=== PATIENT | female | born 1990 | race Caucasian/White ===

== ENCOUNTER → 2021-03-02 07:33 | Outpatient (CLI) | payer OTHER, SELFPAY ==
--- NOTE | 2021-03-02 07:42 | US_ITS ---
STUDY: ABDOMINAL ULTRASOUND - RIGHT UPPER QUADRANT REASON FOR VISIT: Female, 30 years old elevated liver function tests. TECHNIQUE: Ultrasound evaluation of the right upper quadrant was performed with real-time and static mcbride-scale imaging. TECHNICAL QUALITY: Adequate. COMPARISON: None. FINDINGS: Liver: The liver measures 14.1 cm. There is normal echogenicity of the liver. The bile ducts are within normal limits. There is hepatic color flow. The direction of portal flow is hepatopetal. There is no demonstrated mass lesion. Gallbladder: Normal distended gallbladder. The gallbladder wall measures 2.0 mm. There is a negative sonographic Hou''s sign. There is no pericholecystic fluid. There are no gallstones. Common Bile Duct (C.B.D.): The common bile duct measures 3.0 mm. Pancreas: Normal size of the head, body and tail of the pancreas. There is normal echogenicity of the pancreas. There is no demonstrated pancreatic mass or cyst. Right Kidney: Normal size of the right kidney. The right kidney measures 10.3 cm x 5.6 cm x 4.3 cm. Normal renal cortex. The right cortex measures 1.5 cm. There is no demonstrated renal mass or cyst. There is no right hydronephrosis. US/Liver IMPRESSION: Normal right upper quadrant ultrasound examination. Electronically Signed: Parth Pereira MD at 10:59 EST , Service support ,
--- NOTE | 2021-03-02 08:10 | RAD_ITS ---
STUDY: X-RAY - THORACIC SPINE REASON FOR EXAM: Female, 30 years old. BACK PAIN TECHNIQUE: 3 view(s) of the thoracic spine were obtained. COMPARISON: None. FINDINGS: There is straightening of the normal thoracic kyphosis. There is no substantial scoliosis. Normal thoracic vertebrae and endplates. Normal disc space heights. The soft tissue structures are unremarkable. RAD/Thoracic Spine 3 Views IMPRESSION: There is straightening of the normal thoracic kyphosis. Electronically Signed: Parth Pereira MD at 10:50 EST , Service support ,
--- NOTE | 2021-03-02 08:10 | RAD_ITS ---
STUDY: X-RAY - LUMBAR SPINE REASON FOR EXAM: Female, 30 years old. BACK PAIN TECHNIQUE: 5 view(s) of the lumbar spine were obtained. COMPARISON: None FINDINGS: Normal lumbar lordosis. There is no substantial scoliosis. There is a normal alignment of the vertebrae. Normal vertebral bodies and endplates. Normal disc space heights. The soft tissue structures are unremarkable. RAD/L/S Spine Min 4 Views IMPRESSION: Normal x-ray examination of the lumbar spine. Electronically Signed: Parth Pereira MD at 10:51 EST , Service support ,
[2021-03-02 09:00] LABS: Erythrocyte Sedimentation Rate 7 mm/hr (0-30)
[2021-03-02 09:20] LABS: AST(SGOT) 13 U/L (15-37); Alanine Aminotransfer ALT/SGPT 17 U/L (13-56); Albumin, Serum 3.9 g/dL (3.2-5.0); Alkaline Phosphatase 55 U/L (45-117); Anion Gap 4 (5-15); BUN 10 mg/dL (7-18); BUN/Creat Ratio 11.4 RATIO (10-20); CRP < 2.90 mg/L (0.0-3.0); Calcium,Total 9.3 mg/dL (8.5-10.1); Chloride 105 mmol/L (98-107); Creatinine, Serum 0.88 mg/dL (0.55-1.02); EST Glomerular Filtration Rate 82 mL/min (>60); Est Glom Filt Rate - Afr Amer 99 mL/min (>60); Globulin 3.9 g/dL (2.2-4.2); Glucose 86 mg/dL (74-106); Potassium 3.8 mmol/L (3.5-5.1); Protein, Total 7.8 g/dL (6.4-8.2); Sodium Level 138 mmol/L (136-145)
[2021-03-02 09:54] LABS: Hepatitis B Surface Antibody Reactive; Hepatitis B Surface Antigen Non-Reactive (Nonreactive); Hepatitis C Antibody Non-Reactive (Nonreactive)
== END ==
PROVIDERS: PCP Internal Medicine; Referring Provider Internal Medicine; Visit Provider Internal Medicine
DX: M54.50 Low back pain, unspecified (principal); M54.6 Pain in thoracic spine; R94.5 Abnormal results of liver function studies
CPT/HCPCS: 36415; 72072; 72110; 76705; 80053; 85652; 86140; 86706; 86803; 87340

== ENCOUNTER 2021-05-05 17:03 | Outpatient (CLI) | payer OTHER, SELFPAY ==
--- NOTE | 2021-05-05 17:14 | US_ITS ---
STUDY: THYROID ULTRASOUND REASON FOR EXAM: Female, 30 years old. Enlarged thyroid. TECHNIQUE: Ultrasound evaluation of the thyroid was performed with real-time and static mcbride-scale imaging. COMPARISON: None. FINDINGS: RIGHT LOBE: The right lobe of the thyroid gland measures 4.9 x 1.3 x 1 point cm. There is a heterogeneous echotexture. There are no demonstrated solid, cystic or complex lesions. Increased vascularity on DOPPLER imaging. LEFT LOBE: The left lobe of the thyroid gland measures 3.9 x 0.8 x 1.1 cm. There is a heterogeneous echotexture. There are no demonstrated solid, cystic or complex lesions. There is hypervascularity on DOPPLER imaging. ISTHMUS: The isthmus measures 0.2 cm. The regional lymph nodes are normal. US/Thyroid IMPRESSION: Heterogenous hypervascular thyroid without distinct mass. Electronically Signed: Lucio Jama DO at 22:57 EST Tel [phone], Service support ,
[2021-05-05 18:51] LABS: Free T3 2.6 pg/mL (2.18-3.98); T4 Free Direct 0.91 ng/dL (0.76-1.46); Thyroid Stim Hormone (TSH) 2.27 uIU/mL (0.358-3.74)
[2021-05-09 20:29] LABS: Anti-Thyroglobulin AB < 1.0 IU/mL (0.0-0.9)
== END 2021-05-05 23:59 | disposition short-term general hospital (02) ==
PROVIDERS: PCP Internal Medicine; Visit Provider Internal Medicine
DX: M54.50 Low back pain, unspecified (principal); E01.0 Iodine-deficiency related diffuse (endemic) goiter
CPT/HCPCS: 36415; 76536; 84432; 84439; 84443; 84481; 86376; 86800

== ENCOUNTER → 2022-06-27 | Outpatient (CLI) | payer OTHER, SELFPAY ==
[2022-06-30 00:07] LABS: Chlamydia By Nucleic Acid AMP Negative (Negative)
[2022-06-30 08:29] LABS: Gonococcus By Nucleic Acid AMP Negative (Negative)
== END | disposition home or self-care (01) ==
LOC: LABSPEC 17:48
PROVIDERS: PCP Internal Medicine; Visit Provider Obstetrics & Gynecology
DX: Z34.90 Encounter for supervision of normal pregnancy, unspecified, unspecified trimester (principal)
CPT/HCPCS: 87491; 87591

== ENCOUNTER → 2022-06-28 | Outpatient (CLI) | payer OTHER, SELFPAY ==
[2022-06-28 17:12] LABS: Absolute Lymphocyte Count 1.91 X10^3/uL (0.83-4.51); Absolute Neutrophil Count 5.7 X10^3/uL (2.0-7.7); Basophil# 0.03 X10^3/uL; Basophil% 0.3 % (0-1); Eosinophil# 0.11 X10^3/uL; Eosinophils% 1.3 % (0-5); Hematocrit 35.3 % (37-47); Hemoglobin 11.8 g/dL (12.0-15.0); Lymphocyte # 1.91 X10^3/ul (0.83-4.51); Mean Corp Hgb Conc 33.4 g/dL (32-36); Mean Corpuscular Hgb 30.7 pg (27.0-32.0); Mean Corpuscular Volume 91.9 fL (81-99); Mean Platelet Vol. 9.6 fl (6.2-12.0); Monocyte# 0.89 X10^3/uL; Monocyte% 10.2 % (0-10); NRBC Flagged by Analyzer 0 % (0-5); Neutrophil # 5.74 X10^3/uL (2.7-7.7); Platelet Count 248 K/mm3 (150-450); RBC Distribution Width CV 13.1 % (11.6-14.6); RBC Distribution Width SD 43.8 fl (35.1-43.9); Red Blood Count 3.84 M/mm3 (4.2-5.4); White Blood Count 8.7 K/mm3 (4.4-11.0)
[2022-06-28 18:27] LABS: HIV - WCH Non-Reactive (Nonreactive); Hepatitis B Surface Antigen Non-Reactive (Nonreactive); Hepatitis C Antibody Non-Reactive (Nonreactive); Rubella IgG Reactive (Nonreactive); Syphilis Antibodies Non-reactive
== END | disposition home or self-care (01) ==
LOC: LAB 16:43
PROVIDERS: PCP Internal Medicine; Referring Provider Obstetrics & Gynecology; Visit Provider Obstetrics & Gynecology
DX: Z34.90 Encounter for supervision of normal pregnancy, unspecified, unspecified trimester (principal)
CPT/HCPCS: 36415; 85025; 86703; 86762; 86780; 86803; 86850; 86900; 86901; 87086; 87340

== ENCOUNTER → 2022-10-20 | Outpatient (CLI) | payer OTHER, SELFPAY | END | disposition home or self-care (01) | LOC: LAB 16:47 | PROVIDERS: PCP Internal Medicine; Referring Provider Obstetrics & Gynecology; Visit Provider Obstetrics & Gynecology | DX: O26.899 Other specified pregnancy related conditions, unspecified trimester (principal); Z67.91 Unspecified blood type, Rh negative; Z3A.00 Weeks of gestation of pregnancy not specified | CPT/HCPCS: 36415; 86850; 86900; 86901 ==

== ENCOUNTER → 2022-10-25 | Outpatient (CLI) | payer OTHER, SELFPAY | END | disposition home or self-care (01) | PROVIDERS: PCP Internal Medicine | DX: Z34.90 Encounter for supervision of normal pregnancy, unspecified, unspecified trimester (principal); Z3A.00 Weeks of gestation of pregnancy not specified | CPT/HCPCS: 36415 ==

== ENCOUNTER → 2022-11-02 | Outpatient (CLI) | payer OTHER, SELFPAY ==
[2022-11-02 08:12] LABS: Absolute Lymphocyte Count 1.54 X10^3/uL (0.83-4.51); Absolute Neutrophil Count 6.7 X10^3/uL (2.0-7.7); Basophil# 0.04 X10^3/uL; Basophil% 0.4 % (0-1); Eosinophil# 0.09 X10^3/uL; Hematocrit 33.6 % (37-47); Hemoglobin 10.9 g/dL (12.0-15.0); Lymphocyte # 1.54 X10^3/ul (0.83-4.51); Lymphocyte % 17.1 % (19-41); Mean Corp Hgb Conc 32.4 g/dL (32-36); Mean Corpuscular Hgb 30.7 pg (27.0-32.0); Mean Corpuscular Volume 94.6 fL (81-99); Mean Platelet Vol. 10.6 fl (6.2-12.0); Monocyte# 0.56 X10^3/uL; Monocyte% 6.2 % (0-10); NRBC Flagged by Analyzer 0 % (0-5); Neutrophil # 6.71 X10^3/uL (2.7-7.7); Neutrophil % 74.6 % (47-70); Platelet Count 223 K/mm3 (150-450); RBC Distribution Width CV 12.7 % (11.6-14.6); RBC Distribution Width SD 44.2 fl (35.1-43.9); Red Blood Count 3.55 M/mm3 (4.2-5.4)
[2022-11-02 08:36] LABS: Glucose Challenge Gest 1H 50g 89 mg/dL (70-140)
[2022-11-02 08:52] LABS: Syphilis Antibodies Non-reactive
[2022-11-02 09:02] LABS: HIV - WCH Non-Reactive (Nonreactive)
== END | disposition home or self-care (01) ==
LOC: LAB 06:58
PROVIDERS: PCP Internal Medicine; Referring Provider Obstetrics & Gynecology; Visit Provider Obstetrics & Gynecology
DX: Z34.00 Encounter for supervision of normal first pregnancy, unspecified trimester (principal); Z3A.00 Weeks of gestation of pregnancy not specified
CPT/HCPCS: 36415; 82950; 85025; 86703; 86780

== ENCOUNTER → 2022-12-05 | Outpatient (CLI) | payer OTHER, SELFPAY ==
[2022-12-05 13:24] LABS: Creatinine, Urine (random) < 13.00 mg/dL (NO RANGE EST.); Protein, Urine (Random) < 6.0 mg/dL (<11.9)
== END | disposition home or self-care (01) ==
LOC: LABSPEC 12:48
PROVIDERS: PCP Internal Medicine; Referring Provider Advanced Practice Midwife; Visit Provider Advanced Practice Midwife
DX: R03.0 Elevated blood-pressure reading, without diagnosis of hypertension (principal)
CPT/HCPCS: 82570; 84156

== ENCOUNTER → 2023-01-02 | Outpatient (CLI) | payer OTHER, SELFPAY | END | disposition home or self-care (01) | LOC: LABSPEC 15:04 | PROVIDERS: PCP Internal Medicine; Referring Provider Obstetrics & Gynecology; Visit Provider Obstetrics & Gynecology | DX: Z34.00 Encounter for supervision of normal first pregnancy, unspecified trimester (principal); Z3A.00 Weeks of gestation of pregnancy not specified | CPT/HCPCS: 87081 ==

== ENCOUNTER → 2023-01-18 | Outpatient (CLI) | payer OTHER, SELFPAY ==
--- NOTE | 2023-01-18 11:11 | US_ITS ---
STUDY: SECOND AND THIRD TRIMESTER OBSTETRICAL ULTRASOUND - LIMITED REASON FOR EXAM: Female, 32 years old uterine size date discrepancy LMP: April 19, 2022 PRIOR ULTRASOUND: None. TECHNIQUE: Transabdominal TECHNICAL QUALITY: Adequate. FINDINGS: There is a single intrauterine fetus. The fetus is in a cephalic presentation. There is demonstrated cardiac activity with a heart rate of 135 bpm. There is a normal amniotic fluid volume. The largest amniotic fluid pocket measures 4.78 cm. The amniotic fluid index (MARTA) is 13.5 cm. The placenta is There are Grade 2 placental changes. The cervical length was not measured due to the head positioning. BIOMETRY: BPD: 9.38 cm: 38 weeks, 1 days HC: 33.41 cm: 38 weeks, 1 days AC: 34.41 cm: 38 weeks, 1 days FL: 7.46 cm: 38 weeks, 1 days Age by LMP: 39 weeks, 1 days. DEN by LMP: January 24, 2023. age by current US: 38 weeks, 2 days. DEN by current US: January 30, 2023. Estimated weight: 3485 grams, +/- 523 grams, 52 percentile. US/OB Limited With Biometrics IMPRESSION: Single live intrauterine gestation with a mean gestational age of 38 weeks and 2 days. Electronically Signed: Parth Pereira MD at 11:38 EDT ,
== END | disposition home or self-care (01) ==
LOC: US 11:10
PROVIDERS: PCP Internal Medicine; Referring Provider Obstetrics & Gynecology; Visit Provider Obstetrics & Gynecology
DX: O26.849 Uterine size-date discrepancy, unspecified trimester (principal); Z3A.00 Weeks of gestation of pregnancy not specified
CPT/HCPCS: 76816

== ENCOUNTER 2023-01-28 03:50 | Inpatient (IN) | payer OTHER, SELFPAY ==
[2023-01-28] VITALS (37 sets, daily range): BP systolic 106–141; BP diastolic 62–87; PULSE 73–132; RESP 16–18; TEMP 36.4–37.3; O2SAT 96–100; BMI 29.9
[2023-01-28] MEDS: 0.9% Saline Lock 10 ML Syringe IV (04:15)
[2023-01-28 04:27] LABS: Absolute Lymphocyte Count 1.05 X10^3/uL (0.83-4.51); Absolute Neutrophil Count 7.4 X10^3/uL (2.0-7.7); Basophil# 0.02 X10^3/uL; Basophil% 0.2 % (0-1); Eosinophil# 0.02 X10^3/uL; Eosinophils% 0.2 % (0-5); Hematocrit 38.3 % (37-47); Hemoglobin 12.6 g/dL (12.0-15.0); Lymphocyte # 1.05 X10^3/ul (0.83-4.51); Lymphocyte % 11.1 % (19-41); Mean Corp Hgb Conc 32.9 g/dL (32-36); Mean Corpuscular Volume 91.2 fL (81-99); Mean Platelet Vol. 11.7 fl (6.2-12.0); Monocyte# 0.85 X10^3/uL; NRBC Flagged by Analyzer 0 % (0-5); Neutrophil # 7.42 X10^3/uL (2.7-7.7); Neutrophil % 78.9 % (47-70); Platelet Count 180 K/mm3 (150-450); RBC Distribution Width CV 13.8 % (11.6-14.6); RBC Distribution Width SD 45.9 fl (35.1-43.9); White Blood Count 9.4 K/mm3 (4.4-11.0)
[2023-01-28 08:33] LABS: Syphilis Antibodies Non-reactive
--- NOTE | 2023-01-28 08:46 | HP.PCM.OB_ITS ---
HPI - General General Date of Admission: 01/28/23 Date of Service: 01/28/23 Chief Complaint: contractions with increased intensity HPI Narrative TAI LEE, is a 32 F who presents at 40+4 with increased contractions strength and frequency, breathing through contractions in tub. no vb/lof. good fm. 01/18 growth scan 3485g 52% Rh week rh D antibody screen negative. per MFM no rhogam needed. GBs negative. desires low intervention. 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 Maternal Data Information DEN Calculator Estimated Delivery Date Method Current WG Current Estimate 01/24/23 LMP (Certain) 40w 4d Other Estimates 01/23/23 Ultrasound #1 40w 5d PFSH PFSH Medical History (Updated 01/28/23 @ 08:59 by Layne Mccann CNM) Anemia Home Medications cholecalciferol (vitamin D3) 125 mcg (5,000 unit) tablet 125 mcg PO DAILY pt not taking 06/19/22 [History Last Taken Unknown] multivitamin no.47-iron fum 27 mg-folate no.1 1 mg-dha 300 mg capsule (PNV-DHA) 1 cap PO 06/19/22 [History Last Taken 01/27/23 09:00] omega 3-qpz-vle-fish oil 300 mg-1,000 mg capsule (Fish Oil) 1 cap PO DAILY 06/19/22 [History Last Taken 01/27/23 09:00] lactobacillus combination no.4 3 billion cell capsule (Probiotic) 3,000 mmu cells PO DAILY 01/28/23 [History Last Taken 01/27/23 09:00] Allergy/AdvReac Type Severity Reaction Status Date / Time cefaclor [From Ceclor] Allergy Intermediate Hives Verified 01/28/23 03:37 cefprozil [From Cefzil] Allergy Intermediate Hives Verified 01/28/23 03:37 sulfamethoxazole Allergy Intermediate Hives Verified 01/28/23 03:37 [From Bactrim] trimethoprim [From Bactrim] Allergy Intermediate Hives Verified 01/28/23 03:37 Surgical History (Updated 01/28/23 @ 04:55 by Salome Delaney) History of tonsillectomy [place] teeth extracted Social History adopted: No household members: spouse housing: house current occupational status: employed 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 current occupational exposures/hazards: No pets and animals: No history of recent travel: No sexually active: Yes Smoking Status: Never smoker alcohol intake: never substance use type: does not use well-balanced diet: daily or most days caffeine: No eating out: 1-3 times/week during the past year weight has: remained stable what type of physical activity do you participate in: walking, aerobics and weight training frequency: 3-4 times per week duration: 15-30 minutes/day tarun/jew: [employer]ist seatbelt use: always do you feel safe at home: Yes additional social history: [place] -Self employed History 1 Elective abortions Hx Para 0 Spontaneous abortions Hx # Term Pregnancies Ectopic pregnancies Hx # Pregnancies Multiple births # of living children Visit Details Expected Delivery Route/Plan Labor Preferences- CB/BF classes: scheduled labor support person: Mitchel labor intervention preferences: limited intervention pain management options preferred: no epidural cut cord/dad catch: yes : plans PP control planned: discussed discussed possible routes of delivery and associated risks: [] special requests: [] Plans Covid status: discussed Flu vaccine: discussed Tdap vaccine: declines Rhogam: na LARC form signed: yes movement and labor precautions reviewed. Problem list reviewed and updated with the most current plan of care details and appropriate orders placed. Relevant counseling for the gestational age provided. Continue routine care and follow up unless otherwise noted in visit notes/problem list details OB Flowsheet Initial Weight: Not Recorded Date -?-?-?-?-?-?-?-?-?-?-?-?- EGA Weight BP Urine Prot -?-?-?-?-?-?-?-?-?-?-?-?- Glucose FHR FuHt Pres Dilation -?-?-?-?-?-?-?-?-?-?-?-?- Effaced St Visit Note 06/27/22 -?-?-?-?-?-?-?-?-?-?-?-?- 9w 6d 142 lb 2 oz 135/73 -?-?-?-?-?-?-?-?-?-?-?-?- 175 -?-?-?-?-?-?-?-?-?-?-?-?- JV- single live IUP measuring 10 weeks 0 days and consistent with LMP. declines NIPT. 07/25/22 -?-?-?-?-?-?-?-?-?-?-?-?- 13w 6d 146 lb 135/79 Negative -?-?-?-?-?-?-?-?-?-?-?-?- Negative 160 -?-?-?-?-?-?-?-?-?-?-?-?- KW- No cramping no concerns KW- No cramping, no concerns 08/24/22 -?-?-?-?-?-?-?-?-?-?-?-?- 18w 1d 148 lb 4 oz 113/76 Nega tive -?-?-?-?-?-?-?-?-?-?-?-?- Negative 145 -?-?-?-?-?-?-?-?-?-?-?-?- SM- no vb crampi ng 09/20/22 -?-?-?-?-?-?-?-?-?-?-?-?- 22w 0d 155 lb 8 oz 131/73 Trac e -?-?-?-?-?-?-?-?-?-?-?-?- Negative 140 22 -?-?-?-?-?-?-?-?-?-?-?-?- LC- no concerns, no vb/ctx/lof. occ fm. normal anatomy scan. 10/18/22 -?-?-?-?-?-?-?-?-?-?-?-?- 26w 0d 160 lb 4 oz 135/82 Nega tive -?-?-?-?-?-?-?-?-?-?-?-?- Negative 145 26 -?-?-?-?-?-?-?-?-?-?-?-?- JV- pt unsure th at she wants rhogam. rational explained but very hesitant to agree with medical explanation. States, I don't like putting things in my body that are unnecessary pt was informed that it is in fact a necessary medication. She also plans to decline all meds at delivery. we discussed that our practice may not be the best fit for her and she will be deciding this by her next visit. She also initially declined doppler because of radiation in our doppler devices it was explained that there is no radiation in our devices and agreed to have heart tones. 11/08/22 -?-?-?-?-?-?-?-?-?-?-?-?- 29w 0d 163 lb 6 oz 118/72 Nega tive -?-?-?-?-?-?-?-?-?-?-?-?- Negative 141 28 -?-?-?-?-?-?-?-?-?-?-?-?- MH-No Vb, LOF. G ood FM. Patient declines rhogam. She had lab confirms weak D type 2 and rhogam not needed. Discussed with PORSHA. Pt to see MFM. Larc. Normal 28 wk labs. Declines tdap. 11/20/22 -?-?-?-?-?-?-?-?-?-?-?-?- 30w 5d 164 lb 4 oz 150/73 132/76 Negative -?-?-?-?-?-?-?-?-?-?-?-?- Negative 140 31 -?-?-?-?-?-?-?-?-?-?-?-?- SM- no vb lof go od fm no regular ctx extensive discussion on blood typing- will see mfm next week 12/05/22 -?-?-?-?-?-?-?-?-?-?-?-?- 32w 6d 164 lb 3 oz 142/83 134/84 Trace -?-?-?-?-?-?-?-?-?-?-?-?- Negative 145 32 -?-?-?-?-?-?-?--?-?-?-?-?- KW-no vb/lof/ctx . good fm. P/C ratio sent. 12/19/22 -?-?-?-?-?-?-?-?-?-?-?-?- 34w 6d 172 lb 123/79 Negative -?-?-?-?-?-?-?-?-?-?-?-?- Negative 140 35 -?-?-?-?-?-?-?-?-?-?-?-?- KW- no vb/lof/ct x. good FM. had MFM consult. genotyping done. Pt considered Rh+. NO Rhogam needed after delivery. 01/02/23 -?-?-?-?-?-?-?-?-?-?-?-?- 36w 6d 174 lb 123/82 -?-?-?-?-?-?-?-?-?-?-?-?- 145 36 Cephalic -?-?-?-?-?-?-?-?-?-?-?-?- SM- no vb lof go od fm no regular ctx gbs collected 01/11/23 -?-?-?-?-?-?-?-?-?-?-?-?- 38w 1d 176 lb 6 oz 118/82 Nega tive -?-?-?-?-?-?-?-?-?-?-?-?- Negative 145 37 Cephalic -?-?-?-?-?-?-?-?-?-?-?-?- KW-no vb lof reg ctx. good fm. labor precautions reviewed. 01/18/23 -?-?-?-?-?-?-?-?-?-?-?-?- 39w 1d 175 lb 2 oz 122/78 Nega tive -?-?-?-?-?-?-?-?-?-?-?-?- Negative 140 36 Cephalic -?-?-?-?-?-?-?-?-?-?-?-?- SM- no vb lof go od fm no regular ctx get growth US 01/25/23 -?-?-?-?-?-?-?-?-?-?-?-?- 40w 1d 179 lb 136/82 Negative -?-?-?-?-?-?-?-?-?-?-?-?- Negative 140 37 Cephalic 3 -?-?-?-?-?-?-?-?-?-?-?-?- 70 -2 KW-no vb/l of/regular contractions. good fm. had growth US 01/18- MARTA was 13 NST FHR Rate Baby A Baseline: 130 Variability:: Moderate Accelerations:: 15 x 15 Decelerations:: None NST Reactive:: Yes FHR Category:: Category I Uterine Activity:: q2-3 minutes, palp mod/strong ROS Cardiovascular Cardiovascular: Denies abdominal pain Respiratory/Chest Respiratory/Chest: Denies change in mental status, chest tightness, cough or shortness of breath with exertion Genitourinary Genitourinary: Reports change in urinary stream Musculoskeletal Musculoskeletal: Reports none Integumentary Integumentary: Reports none Neurologic Neurologic: Reports none Psychiatric Psychiatric: Reports none Endocrine Endocrinology: Reports none Hematologic/Lymphatic Hematologic/Lymphatic: Reports none Allergic/Immunologic Allergic/Immunologic: Reports none Vital Signs Vital Signs Vital Signs: 01/28/23 03:38 01/28/23 03:38 01/28/23 03:38 Temperature Temperature Source Pulse Rate 88 81 Blood Pressure 138/79 H BP Systolic 138 BP Diastolic 79 Pulse Ox 01/28/23 03:38 01/28/23 04:46 01/28/23 04:46 Temperature Temperature Source Pulse Rate 73 Blood Pressure 138/70 H BP Systolic 138 BP Diastolic 70 Pulse Ox 98 01/28/23 04:46 01/28/23 04:46 01/28/23 05:22 Temperature Temperature Source Pulse Rate 83 78 Blood Pressure BP Systolic BP Diastolic Pulse Ox 98 01/28/23 04:46 01/28/23 04:46 01/28/23 06:30 Temperature 99.2 F H Temperature Source Temporal Oral Pulse Rate Blood Pressure BP Systolic BP Diastolic Pulse Ox 01/28/23 06:30 01/28/23 06:30 01/28/23 06:30 Temperature Temperature Source Pulse Rate 89 Blood Pressure 109/65 BP Systolic 109 BP Diastolic 65 Pulse Ox 97 01/28/23 06:30 01/28/23 06:20 01/28/23 06:50 Temperature 98.3 F Temperature Source Pulse Rate 90 86 Blood Pressure BP Systolic BP Diastolic Pulse Ox 01/28/23 07:24 01/28/23 07:24 01/28/23 07:33 Temperature Temperature Source Temporal Pulse Rate 90 90 Blood Pressure BP Systolic BP Diastolic Pulse Ox 01/28/23 07:33 01/28/23 07:33 01/28/23 07:33 Temperature Temperature Source Pulse Rate 97 Blood Pressure 122/68 H BP Systolic 122 BP Diastolic 68 Pulse Ox 97 01/28/23 07:33 01/28/23 08:30 01/28/23 08:30 Temperature 98.9 F Temperature Source Oral Pulse Rate Blood Pressure 117/71 BP Systolic 117 BP Diastolic 71 Pulse Ox 01/28/23 08:30 01/28/23 08:30 01/28/23 08:30 Temperature 99.0 F Temperature Source Pulse Rate 100 Blood Pressure BP Systolic BP Diastolic Pulse Ox 96 Weight Weight: 174 lb 12.8 oz Body Mass Index (BMI) 29.9 Physical Exam Const alert, oriented x3 and no apparent distress General Appearance: cooperative, comfortable and well kempt Orientation / Consciousness: awake and oriented to person Exam Limitations: no limitations HEENT normocephalic Neck full ROM Chest inspection of chest normal Resp normal respiratory effort, normal air movement and no retractions Effort and Inspection: able to speak in complete sentences and symmetric chest movement Cardio regular rate Peripheral Pulses: pulses 2+ throughout GI normal to inspection, nondistended, normoactive bowel sounds Inspection: gravid no CVA tenderness and appearance of the vagina normal External Female Exam: normal appearance of the urethra; Negative for external lesion OB / External & Speculum: external exam normal Manual OB Exam: estimated gestational size appropriate and presentation cephalic Uterus Palpation: Negative for uterus tender Extremity normal to inspection Skin no rashes or lesions noted Neuro deep tendon reflexes 2+ bilaterally and gait normal Motor Exam: strength 5/5 throughout and clonus absent Psych Activity / Motor Behavior: appropriate eye contact Speech: normal speech Labs Labs Labs: Blood Type B WEAK RH D Antibody Screen NEGATIVE Hct 38.3 % (37-47) Hgb 12.6 g/dL (12.0-15.0) Obstetrics US Syphilis Total Ab Non-reactive Rubella IgG Antibody Reactive (Nonreactive) Hep Bs Antigen Non-Reactive (Nonreactive) Chlamydia DNA (NIYA) Negative (Negative) Neisseria gonorrhoeae DNA (NIYA) Negative (Negative) HIV 1&2 Antibody Non-Reactive (Nonreactive) Glucose 1 Hr 50 gm 89 mg/dL (70-140) Miscellaneous Test Assessment & Plan (1) Spontaneous onset of labor: COMMENT: admit to [facility], reactive NST. may be in tub for hydrotherapy. low risk. IA for monitoring. 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 Has history of both B pos and B neg typing. Will see MFM for consult. (5) Supervision of normal first : QUALIFIERS: Trimester: third trimester Qualified Code(s): Z34.03 - Encounter for supervision of normal first , third trimester COMMENT: PRR , DEN 01/24/23, Mitchel (6) : QUALIFIERS: Weeks of gestation: 40 weeks Qualified Code(s): Z3A.40 - 40 weeks gestation of COMMENT: declined ntd genetic & carrier testing, anatomy nl. gbs neg (7) Anemia: QUALIFIERS: Anemia type: iron deficiency Iron deficiency anemia type: inadequate dietary iron intake Qualified Code(s): D50.8 - Other iron deficiency anemias COMMENT: add Fe PLAN: Plan Patient presents IAL, plan expectant management for , pitocin/AROM PRN if needed. Pain management: plans unmedicated. GBS negative. Management of any complications: none I have reviewed the [facility] and made any clinically relevant updates. updated on admission, exam and poc. agrees with primary midwifery management. available.
[2023-01-28] MEDS: Lidocaine 1% (20 ml mdv) 20 ML Vial INFILT (11:16)
--- NOTE | 2023-01-28 12:13 | EX.PCM.OBRPT ---
Assessment & Plan (1) (spontaneous vaginal delivery): COMMENT: LC IAL 40+4. 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 Has history of both B pos and B neg typing. Will see MFM for consult. Maternal Data Information DEN Calculator Estimated Delivery Date Method Current WG Current Estimate 01/24/23 LMP (Certain) 40w 4d Other Estimates 01/23/23 Ultrasound #1 40w 5d Final DEN: 01/24/23 Final DEN Source: LMP Vaginal Delivery Maternal Presentation Maternal Presentation: Active Labor Maternal Presentation: presents in active labor at 40+4, desiring minimal intervention. SROM at 9.5cm. fully dilated with urge to push Operative Information Date of Procedure: 01/28/23 Pre-Operative Diagnosis: see problem list Surgery / Procedure Performed: Spontaneous Vaginal Delivery Type of Anesthesia: Local with 1% Lidocaine Estimated Blood Loss: 450 Time of Delivery: 11:07 Findings Description of Procedure: Patient began pushing and delivered the head in the OA presentation. The head was delivered atraumatically. The anterior and posterior shoulders delivered without complication followed by the rest of the infant and the was placed on the maternal abdomen. Delayed cord clamping was employed for approximately 4minutes per parents wishes. Cord was clamped and cut and gentle traction was applied to the cord and the placenta delivered spontaneously immediately following it was noted to be intact with three-vessel cord. The perineum and vagina were inspected and noted to have second degree laceration repaired in usual fashion after local anesthesia administered with 1% lidocaine. EBL was 450cc. declines pitocin, risk and benefits discussed. attempting to nurse. reviewed PPH risk and if any additional clots agrees will accept pitocin Patient and tolerated delivery well entered recovery phase bonding skin to skin. Presentation: Vertex Amniotic Membrane Rupture Type: Artificial Amniotic Fluid Description: Clear Placental Delivery Description: Spontaneous Placenta Disposition: [facility] Cord Vessel Description: 3 Vessels Cord Entanglement: None Infant A Gender: Female (1 minute): 9 (5 minute): 9 Delayed Cord Clamping: Yes Post Vaginal Delivery Episiotomy Description: None Laceration: 2nd degree Procedures Urinary/Genital [id number]: [id number] Vaginal Delivery [facility]
[2023-01-28] MEDS: Benzocaine/Lanolin/Aloe Vera 1 SPRAY EACH TOPICAL (15:13)
[2023-01-29 04:00] VITALS: BP 131/60; PULSE 90; RESP 16; TEMP 36.3
[2023-01-29 05:31] LABS: Hematocrit 33.5 % (37-47); Hemoglobin 10.6 g/dL (12.0-15.0); Mean Corp Hgb Conc 31.6 g/dL (32-36); Mean Corpuscular Hgb 29.9 pg (27.0-32.0); Mean Corpuscular Volume 94.6 fL (81-99); Mean Platelet Vol. 11.5 fl (6.2-12.0); Platelet Count 209 K/mm3 (150-450); RBC Distribution Width SD 48.1 fl (35.1-43.9); Red Blood Count 3.54 M/mm3 (4.2-5.4); White Blood Count 18.2 K/mm3 (4.4-11.0)
[2023-01-29 08:01] VITALS: BP 123/65; PULSE 91
[2023-01-29 08:03] VITALS: BP 123/65; PULSE 65; RESP 16; TEMP 36.6
--- NOTE | 2023-01-29 08:35 | PCM.PN.OB ---
Subjective Subjective Patient doing well without complaints. Tolerating PO. Ambulating and voiding without difficulty. Feeding well. Denies chest pain, shortness of breath, calf pain/swelling, fevers, chills, lightheadedness. Objective Data Objective Data Vital Signs: Vital Signs Temp Pulse Resp BP Pulse Ox O2 Del Method 97.9 F 65 16 123/65 H 96 Room Air 01/29/23 08:03 01/29/23 08:03 01/29/23 08:03 01/29/23 08:03 01/28/23 23:05 01/29/23 08:03 Oxygen Delivery Method Room Air Weight: 174 lb 12.8 oz Body Mass Index (BMI) 29.9 Intake & Output: Intake and Output for Last 24 Hours 01/27/23 01/28/23 01/29/23 23:59 23:59 23:59 Output Total 1850 / 1850 Balance -1850 / -1850 Lab / Micro Data 01/29/23 05:25 Labs: Laboratory Results - last 24 hr 01/29/23 05:25: WBC 18.2 H, RBC 3.54 L, Hgb 10.6 L, Hct 33.5 L, MCV 94.6, MCH 29.9, MCHC 31.6 L, RDW Std Deviation 48.1 H, RDW Coeff of Rachelle 14.0, Plt Count 209, MPV 11.5 Physical Exam Const alert and no apparent distress Chest inspection of chest normal Nipple/Areola: nipples/areola normal Resp normal respiratory effort and normal air movement Cardio regular rate and regular rhythm GI normal to inspection, nondistended, normoactive bowel sounds Uterus Palpation: uterus fundus firm Extremity normal to inspection, no calf tenderness and no pedal edema Skin no rashes or lesions noted Psych mental status grossly normal Assessment & Plan (1) (spontaneous vaginal delivery): COMMENT: LC IAL 40+4. girl PLAN: s/p PPD # 1 1. routine post delivery care 2. breast feeding- support given 3. rh positive, weak d type 2 positive. does not need rhogam 4. rubella immune 5. d/c home today if infant able for d/c
[2023-01-29 13:14] VITALS: BP 121/69; PULSE 83; RESP 16; TEMP 37.3
[2023-01-29 13:15] VITALS: BP 121/69; PULSE 83
== END 2023-01-29 15:40 | disposition home or self-care (01) | DRG 807 ==
LOC: WPOUT 03:54 → WP 03:54
PROVIDERS: Admitting Provider Registered Nurse; PCP Internal Medicine; Visit Provider Registered Nurse
DX: O48.0 Post-term pregnancy (principal); Z37.0 Single live birth; D50.8 Other iron deficiency anemias; O26.843 Uterine size-date discrepancy, third trimester; O70.1 Second degree perineal laceration during delivery; O99.02 Anemia complicating childbirth; Z3A.40 40 weeks gestation of pregnancy
CPT/HCPCS: 59025; 59050; 85025; 85027; 86780; 86850; 86900; 86901; 99221; A4216; G0378

== ENCOUNTER → 2024-09-29 | Outpatient (CLI) | payer SELFPAY ==
[2024-09-29 17:11] LABS: Absolute Lymphocyte Count 1.69 X10^3/uL (0.83-4.51); Absolute Neutrophil Count 4.9 X10^3/uL (2.0-7.7); Basophil# 0.03 X10^3/uL; Basophil% 0.4 % (0-1); Eosinophil# 0.14 X10^3/uL; Eosinophils% 1.9 % (0-5); Hematocrit 38.5 % (37-47); Hemoglobin 12.4 g/dL (12.0-15.0); Lymphocyte # 1.69 X10^3/ul (0.83-4.51); Lymphocyte % 23.4 % (19-41); Mean Corp Hgb Conc 32.2 g/dL (32-36); Mean Corpuscular Hgb 30.2 pg (27.0-32.0); Mean Corpuscular Volume 93.7 fL (81-99); Mean Platelet Vol. 10.1 fl (6.2-12.0); Monocyte# 0.46 X10^3/uL; Monocyte% 6.4 % (0-10); NRBC Flagged by Analyzer 0 % (0-5); Neutrophil # 4.89 X10^3/uL (2.7-7.7); Neutrophil % 67.6 % (47-70); Platelet Count 247 K/mm3 (150-450); RBC Distribution Width CV 13.5 % (11.6-14.6); RBC Distribution Width SD 46.3 fl (35.1-43.9); Red Blood Count 4.11 M/mm3 (4.2-5.4); White Blood Count 7.2 K/mm3 (4.4-11.0)
[2024-09-29 17:58] LABS: HIV Nonreactive (Nonreactive); Hepatitis B Surface Antigen Nonreactive (Nonreactive); Hepatitis C Antibody Nonreactive (Nonreactive); Rubella IgG REAC (Nonreactive); Syphilis Antibodies Nonreactive (Nonreactive)
[2024-10-01 21:07] LABS: Chlamydia By Nucleic Acid AMP Negative (Negative); Gonococcus By Nucleic Acid AMP Negative (Negative)
== END | disposition home or self-care (01) ==
LOC: BWCLAB 13:29
PROVIDERS: PCP Internal Medicine; Referring Provider Advanced Practice Midwife; Visit Provider Advanced Practice Midwife
DX: Z34.90 Encounter for supervision of normal pregnancy, unspecified, unspecified trimester (principal)
CPT/HCPCS: 36415; 85025; 86703; 86762; 86780; 86803; 86850; 86900; 86901; 87086; 87340; 87491; 87591

== ENCOUNTER → 2024-12-12 | Outpatient (CLI) | payer SELFPAY ==
--- NOTE | 2024-12-12 08:29 | US_ITS ---
PROCEDURE: OB ANATOMY W/ TRANSVAGINAL 12/12/2024 REASON FOR EXAM: OB ANATOMY SCAN TECHNIQUE: OB ANATOMY W/ TRANSVAGINAL COMPARISON: None FINDINGS LMP: July 25, 2024. Number: 1 Position: Breech Placental Position: Posterior and not low-lying. Placental Abnormalities: No evidence of previa. DIMENSIONS: Biparietal Diameter: 4.9 cm: 20 weeks and 6 days: 81.7 percentile/ Head Circumference: 18.52 cm: 20 weeks and 6 days: 80 percentile/ Abdominal Circumference: 15.44 cm: 20 weeks and 4 days: 65.4 percentile/ Femur Length: 3.34 cm: 20 weeks and 3 days: 59.4 percentile/ ESTIMATED WEIGHT: 365 g plus/-55 g ESTIMATED WEIGHT PERCENTILE (24+ weeks): 78 ESTIMATED GESTATIONAL AGE: Baseline: 20 weeks and 0 days By Ultrasound: 20 weeks and 4 days ESTIMATED DATE OF DELIVERY: Baseline: May 01, 2025 By Ultrasound: April 27, 2025 BIOPHYSICAL ASSESSMENT: Amniotic Fluid Volume: 5.2 cm 5.1 cm Amniotic Fluid Index: Within normal limits. (8-24 cm normal range) Cardiac Motion: 135 beats per minute (average) Trunk and Limb Motion: Present. MATERNAL ANATOMY: Adnexa: Both maternal ovaries are visualized and unremarkable. Cervical Length (if measured): 5.4 cm ANATOMY: Spine: Unremarkable Cranium: Unremarkable Cerebellum: Unremarkable Cisterna Magna: Unremarkable Cavum Septum Pellucidi: Unremarkable Lateral Ventricles: Unremarkable Choroid Plexus: Unremarkable Midline Falx: Unremarkable Nuchal Fold: Unremarkable Upper Lip: Unremarkable Heart: Unremarkable Stomach: Unremarkable Kidneys: Unremarkable Bladder: Unremarkable Umbilical Cord: Placenta cord inserts at 2.6 cm from the placental edge. Extremities: Unremarkable US/OB Anatomy w/ Transvaginal IMPRESSION: Single live intrauterine gestation with a mean gestational age of 20 weeks and 4 days. Reading Location: [facility]
== END | disposition home or self-care (01) ==
PROVIDERS: PCP Internal Medicine; Referring Provider Obstetrics & Gynecology; Visit Provider Obstetrics & Gynecology
DX: Z34.90 Encounter for supervision of normal pregnancy, unspecified, unspecified trimester (principal)
CPT/HCPCS: 76805; 76817

== ENCOUNTER → 2025-02-06 | Outpatient (CLI) | payer SELFPAY ==
[2025-02-06 11:07] LABS: Hematocrit 36.2 % (37-47); Hemoglobin 11.9 g/dL (12.0-15.0); Immature Granulocytes Count 0.100 X10^3/uL (0.0-0.0); Mean Corp Hgb Conc 32.9 g/dL (32-36); Mean Corpuscular Volume 92.3 fL (81-99); Mean Platelet Vol. 10.5 fl (6.2-12.0); NRBC Flagged by Analyzer 0 % (0-5); Platelet Count 219 K/mm3 (150-450); RBC Distribution Width CV 13.1 % (11.6-14.6); RBC Distribution Width SD 43.8 fl (35.1-43.9); Red Blood Count 3.92 M/mm3 (4.2-5.4); White Blood Count 9.5 K/mm3 (4.4-11.0)
[2025-02-06 11:58] LABS: Glucose Challenge Gest 1H 50g 112 mg/dL (70-140); HIV Nonreactive (Nonreactive); Syphilis Antibodies Nonreactive (Nonreactive)
== END | disposition home or self-care (01) ==
LOC: BWCLAB 09:24
PROVIDERS: PCP Internal Medicine; Visit Provider Advanced Practice Midwife
DX: O09.90 Supervision of high risk pregnancy, unspecified, unspecified trimester (principal); Z13.1 Encounter for screening for diabetes mellitus; Z3A.24 24 weeks gestation of pregnancy
CPT/HCPCS: 36415; 82950; 85025; 86703; 86780; 86850; 86900; 86901

== ENCOUNTER → 2025-04-08 | Outpatient (CLI) | payer SELFPAY | END | disposition home or self-care (01) | LOC: LABSPEC 12:25 | PROVIDERS: PCP Internal Medicine; Visit Provider Obstetrics & Gynecology | DX: Z34.83 Encounter for supervision of other normal pregnancy, third trimester (principal); Z3A.36 36 weeks gestation of pregnancy | CPT/HCPCS: 87081 ==

== ENCOUNTER 2025-04-21 11:24 | Outpatient (CLI) | payer SELFPAY ==
--- NOTE | 2025-04-21 11:32 | US_ITS ---
PROCEDURE: OB BIOPHYSICAL PROF W/O NST 04/21/2025 REASON FOR EXAM: FLUID CHECK. LMP EGA 38 weeks 4 days. TECHNIQUE: Procedure Code: [id number] Modality: US Procedure: OB BIOPHYSICAL PROF W/O NST COMPARISON: OB Anatomy w/ Transvaginal, 12/12/2024 FINDINGS FETUS: There is a single living intrauterine gestation. POSITION: position is cephalic. HEART RATE: The heart rate is 136 bpm and regular. ANATOMIC SURVEY: Detailed anatomy survey not performed. The umbilical cord can be seen wrapped around the neck with color Doppler flow. CERVIX: Not well visualized. PLACENTA: The placenta is posterior. Grade 1. No demonstrated evidence of previa or abruption. BREATHING MOVEMENTS: Score 2/2. BODY MOVEMENTS: Score 2/2. TONE: Score 2/2. QUALITATIVE AMNIOTIC FLUID VOLUME: 8.6 cm, largest pocket 5.1 cm Score 2/2. US/OB Biophysical Prof W/O NST IMPRESSION: 1. Single live intrauterine gestation. 2. Normal biophysical profile, 11/28. 3. Umbilical cord wrapped around the neck, concerning for a nuchal cord. This was not seen on the prior study. Reading Location: [id number]
[2025-04-21 11:33] VITALS: BMI 32.1
[2025-04-21 11:39] VITALS: BP 148/75; PULSE 94; O2SAT 98
[2025-04-21 11:41] VITALS: RESP 16; TEMP 36.6
[2025-04-21 12:25] VITALS: BP 129/59; PULSE 80
--- NOTE | 2025-04-21 12:45 | OB.TRI.PN ---
Progress Notes Date of Service: 04/21/25 Progress Note: Patient presents for triage evaluation secondary to decreased fundal height in the office- BPP ordered Assessment and plan: BPP 11/28, MARTA 8, reassuring maternal and status patient discharged to home to follow-up at next appt. See problem list details for additional plan information. Charges/Coding Multi Select Codes Visit Charges Office Visit/Consults: [id number] OV L3 Est 20min Assessment & Plan (1) Rh negative state in antepartum period: COMMENT: Weak D type 2(nl at NOB), declines Rhogam (MFM-said she does not need) (2) Supervision of normal : QUALIFIERS: Normal : other normal Trimester: third trimester Qualified Code(s): Z34.83 - Encounter for supervision of other normal , third trimester COMMENT: PRR, , DEN 05/01/25, boy PC Jennifer, Mitchel (3) : QUALIFIERS: Weeks of gestation: 38 weeks Qualified Code(s): Z3A.38 - 38 weeks gestation of COMMENT: Neg GBS. Declined NIPT & Carrier testing, nl anatomy
== END 2025-04-21 12:28 | disposition home or self-care (01) ==
LOC: WPOUT 11:25 → WP 11:26
PROVIDERS: PCP Internal Medicine; Referring Provider Advanced Practice Midwife; Visit Provider Advanced Practice Midwife
DX: Z34.83 Encounter for supervision of other normal pregnancy, third trimester (principal); Z3A.38 38 weeks gestation of pregnancy; Z67.91 Unspecified blood type, Rh negative
CPT/HCPCS: 76819; 99221; G0378